=== PATIENT | female | born 1995 | race Caucasian/White ===

== ENCOUNTER 2019-01-06 23:21 | Emergency (ER) | payer OTHER ==
[~2019-01-06] VITALS: Ht 160 cm; Wt 67.3 kg
[2019-01-07] MEDS ORDERED: BIRTH CONTROL (00:30)
[2019-01-07] MEDS ORDERED: DOXYCYCLINE 10100 MG PO (01:31)
[2019-01-07 02:10] VITALS: BP 113/68; PULSE 90; TEMP 98.9
== END 2019-01-07 02:13 | disposition home or self-care (01) ==
LOC: COL.ER 23:21
DX: J18.1 Lobar pneumonia, unspecified organism (principal)